=== PATIENT | female | born 1950 | race Caucasian/White ===

== ENCOUNTER 2022-05-18 14:57 | Outpatient (CLI) | payer OTHER, SELFPAY ==
--- NOTE | 2022-05-18 15:20 | CRLHL7_ITS ---
For Patients: As a result of the Century Cures Act, medical imaging exams and procedure reports are released immediately into your electronic medical record. You may view this report before your referring provider. If you have questions, please contact your health care provider. BILATERAL DIGITAL SCREENING MAMMOGRAM WITH COMPUTER-AIDED DETECTION, 05/18/2022 CLINICAL HISTORY: Routine screening exam. COMPARISON: 06/16/2020, 01/22/2019 TECHNIQUE: Digital mammogram in CC and MLO projections including computer-aided detection (CAD). BREAST COMPOSITION: The breasts are heterogeneously dense, which may obscure small masses. FINDINGS: RIGHT Breast: Asymmetric density within the lower outer quadrant 3 cm from the nipple. LEFT Breast: No suspicious findings. IMPRESSION: RIGHT breast asymmetry/mass. RECOMMENDATIONS: Additional mammographic views of the RIGHT breast including 3D spot-compression CC/MLO. RIGHT breast ultrasound may also be required. [facility] will contact the patient for follow-up. BI-RADS Category 0: Incomplete: Need Additional Imaging Evaluation. Dictated by Goyo Mcgovern MD @ 05/21/2022 8:58:48 AM PT/Dictated by: Goyo Mcgovern MD @ 05/21/2022 8:59:00 AM (Electronically Signed)
== END 2022-05-18 14:58 | disposition home or self-care (01) ==
LOC: MAMMO 14:58
PROVIDERS: PCP Internal Medicine; Visit Provider Internal Medicine
DX: Z12.31 Encounter for screening mammogram for malignant neoplasm of breast (principal); N63.10 Unspecified lump in the right breast, unspecified quadrant
CPT/HCPCS: 77067

== ENCOUNTER 2022-05-23 07:28 | Outpatient (CLI) | payer OTHER, SELFPAY ==
--- NOTE | 2022-05-23 07:45 | CRLHL7_ITS ---
For Patients: As a result of the Cures Act, medical imaging exams and procedure reports are released immediately into your electronic medical record. You may view this report before your referring provider. If you have questions, please contact your health care provider. DIGITAL DIAGNOSTIC RIGHT MAMMOGRAM WITH TOMOSYNTHESIS AND COMPUTER-AIDED DETECTION, 05/23/2022 RIGHT BREAST ULTRASOUND, 05/23/2022 CLINICAL HISTORY: RIGHT breast mass/asymmetry. COMPARISON: 05/18/2022. TECHNIQUE: Digital RIGHT mammogram in two projections. Tomosynthesis and CAD utilized. Real-time ultrasound imaging of RIGHT breast with imaging documentation. BREAST COMPOSITION: The breasts are heterogeneously dense, which may obscure small masses. FINDINGS: 3D spot compression CC/MLO RIGHT breast mammogram submitted. Decreased conspicuity of asymmetric density. No architectural distortion. Targeted RIGHT breast ultrasound performed in the area of concern, lower outer quadrant. At 7-8 o`clock 3 cm from the nipple, normal dense fibroglandular tissue is present with multiple duct ectasia. No fibrocystic change or mass. IMPRESSION: Normal additional views RIGHT breast and normal targeted RIGHT breast ultrasound. No evidence of malignancy. RECOMMENDATIONS: Annual BILATERAL screening mammography. BI-RADS Category 2: Benign A lay language report of this examination will be provided to the patient. Dictated by Goyo Mcgovern MD @ 05/23/2022 10:35:31 AM /Dictated by: Goyo Mcgovern MD @ 05/23/2022 10:35:00 AM (Electronically Signed)
--- NOTE | 2022-05-23 08:15 | CRLHL7_ITS ---
For Patients: As a result of the Cures Act, medical imaging exams and procedure reports are released immediately into your electronic medical record. You may view this report before your referring provider. If you have questions, please contact your health care provider. RIGHT BREAST ULTRASOUND, 05/23/2022 PLEASE SEE DIGITAL DIAGNOSTIC RIGHT MAMMOGRAM PERFORMED SAME DAY CRL:[email or web address] [email or web address]/Dictated by: Goyo Mcgovern MD @ 05/23/2022 10:35:00 AM (Electronically Signed)
== END 2022-05-23 07:29 | disposition home or self-care (01) ==
LOC: MAMMO 07:29
PROVIDERS: PCP Internal Medicine; Visit Provider Internal Medicine
DX: N63.10 Unspecified lump in the right breast, unspecified quadrant (principal); R92.8 Other abnormal and inconclusive findings on diagnostic imaging of breast
CPT/HCPCS: 76642; 77065; G0279

== ENCOUNTER 2023-06-14 07:47 | Outpatient (CLI) | payer OTHER, SELFPAY ==
--- NOTE | 2023-06-14 08:15 | CRLHL7_ITS ---
For Patients: As a result of the Century Cures Act, medical imaging exams and procedure reports are released immediately into your electronic medical record. You may view this report before your referring provider. If you have questions, please contact your health care provider. BILATERAL SCREENING MAMMOGRAM WITH COMPUTER-AIDED DETECTION TECHNIQUE: CC and MLO views were obtained. These mammographic images have been obtained using full-field digital technique. These mammographic images were interpreted with the benefit of computer-aided detection. COMPARISON FILM: 05/23/22, 05/18/22, 05/11/22. FINDINGS: The breasts are extremely dense, which lowers the sensitivity of mammography IMPRESSION: There is no radiographic evidence for malignancy. ASSESSMENT: BI-RADS Category 1: Negative RECOMMENDATION: Routine screening mammogram in 1 year. A lay language report of this examination will be provided to the patient. Goyo Mcgovern M.D. Diagnostic Radiologist [email or web address] YU/Dictated by: Goyo Mcgovern MD @ 06/14/2023 9:25:00 AM (Electronically Signed)
== END 2023-06-14 07:48 | disposition home or self-care (01) ==
LOC: MAMMO 07:49
PROVIDERS: PCP Internal Medicine; Visit Provider Internal Medicine
DX: Z12.31 Encounter for screening mammogram for malignant neoplasm of breast (principal); R92.2 Inconclusive mammogram
CPT/HCPCS: 77067

== ENCOUNTER 2024-04-01 07:48 | Outpatient (CLI) | payer OTHER, SELFPAY | END 2024-04-01 07:49 | disposition home or self-care (01) | LOC: NFLDREF 04-21 11:52 | PROVIDERS: PCP Internal Medicine; Referring Provider Internal Medicine; Visit Provider Internal Medicine | DX: Z00.00 Encounter for general adult medical examination without abnormal findings (principal); M81.0 Age-related osteoporosis without current pathological fracture; Z13.1 Encounter for screening for diabetes mellitus; Z13.6 Encounter for screening for cardiovascular disorders | CPT/HCPCS: 80061; 82306; 82947 ==

== ENCOUNTER 2024-06-19 08:52 | Outpatient (CLI) | payer OTHER, SELFPAY ==
--- NOTE | 2024-06-19 09:15 | CRLHL7_ITS ---
For Patients: As a result of the Century Cures Act, medical imaging exams and procedure reports are released immediately into your electronic medical record. You may view this report before your referring provider. If you have questions, please contact your health care provider. BILATERAL SCREENING MAMMOGRAM WITH COMPUTER-AIDED DETECTION AND TOMOSYNTHESIS TECHNIQUE: CC and MLO views were obtained. These mammographic images have been obtained using full-field digital technique. These mammographic images were interpreted with the benefit of computer-aided detection. Breast Tomosynthesis was used in this interpretation. COMPARISON FILM: 06/14/23, 05/18/22, 06/16/20. FINDINGS: The breasts are heterogeneously dense, which may obscure small masses IMPRESSION: There is no radiographic evidence for malignancy. ASSESSMENT: BI-RADS Category 1: Negative RECOMMENDATION: Routine screening mammogram in 1 year. A lay language report of this examination will be provided to the patient. Goyo Mcgovern M.D. Diagnostic Radiologist [email or web address] TAY/[email or web address] / bM/Dictated by: Goyo Mcgovern MD @ 06/19/2024 11:36:00 AM (Electronically Signed)
== END 2024-06-19 08:53 | disposition home or self-care (01) ==
LOC: MAMMO 08:52
PROVIDERS: PCP Internal Medicine; Visit Provider Internal Medicine
DX: Z12.31 Encounter for screening mammogram for malignant neoplasm of breast (principal); R92.2 Inconclusive mammogram
CPT/HCPCS: 77063; 77067

== ENCOUNTER 2025-04-02 08:35 | Outpatient (CLI) | payer MEDICARE, SELFPAY | END 2025-04-02 08:36 | disposition home or self-care (01) | LOC: NFLDREF 04-08 11:19 | PROVIDERS: PCP Internal Medicine; Referring Provider Internal Medicine; Visit Provider Internal Medicine | DX: Z00.01 Encounter for general adult medical examination with abnormal findings (principal); M81.0 Age-related osteoporosis without current pathological fracture; Z13.6 Encounter for screening for cardiovascular disorders; Z13.1 Encounter for screening for diabetes mellitus | CPT/HCPCS: 80061; 82306; 82947 ==

== ENCOUNTER 2025-04-28 15:06 | Outpatient (CLI) | payer MEDICARE, SELFPAY ==
--- NOTE | 2025-04-28 15:30 | CRLHL7_ITS ---
For Patients: As a result of the Century Cures Act, medical imaging exams and procedure reports are released immediately into your electronic medical record. You may view this report before your referring provider. If you have questions, please contact your health care provider. DXA BONE MINERAL DENSITY STUDY Reason for exam: Age-related osteoporosis. Current height (in): 62. Weight (lb): 100. Menopause age: 51. Ethnicity: White. 1. Have you had a previous hip or vertebral fracture? No. 2. Have you had any fractures during your adult life which did not result from significant trauma (e.g., auto accident)? No. 3. Did either of your parents have a hip fracture? No. 4. Do you smoke? No. 5. Have you ever taken Glucocorticoids? No. 6. Do you have rheumatoid arthritis? No. 7. Do you have secondary osteoporosis? No. 8. Do you drink 3 or more alcoholic drinks per day? No. 9. Are you being treated for osteoporosis? Yes. 10. Have you ever taken any of the following medications: Actonel, Evista, Fosamax, Miacalcin, Reclast, Boniva, Forteo, HRT (i.e. estrogen/hormone therapy), Protelos, Prolia, Vitamin D, Calcium, other ??? please specify. ANSWER: Yes, vitamin D. 11. Do you have any of the following medical conditions: Anorexia or bulimia, asthma or emphysema, end stage renal disease, hyperparathyroidism, any seizure disorders, cancer, inflammatory bowel diseases, hysterectomy, other ??? please specify. ANSWER: No. 12. What was your maximum height (inches)? 62. 13. Do you perform weight bearing exercise regularly? Yes. 14. Do you regularly consume dairy products? Yes. 15. Do you drink caffeinated beverages? No. 16. At what age did your period start? 12. 17. Are you premenopausal? No. 18. How many full-term pregnancies have you had? 2. 19. Have you ever missed your period for more than 6 months in a row (not including or menopause)? No. TECHNIQUE: Bone mineral density study was performed using the [employer]. FINDINGS: The results of the study expressed as bone mineral density (BMD) are as follows: Lumbar spine L1 to L3: BMD: 0.781 g/cm2. T-score: -2.2. Z-score: 0.3. Neck Left: BMD: 0.545 g/cm2. T-score: -2.7. Z-score: -0.6. Right: BMD: 0.531 g/cm2. T-score: -2.9. Z-score: -0.7. Total Left: BMD: 0.849 g/cm2. T-score: -0.8. Z-score: 1.1. Right: BMD: 0.837 g/cm2. T-score: -0.9. Z-score: 1.0. IMPRESSION: Osteoporosis. *Comparison exams done prior to 04/2020 were performed on different unit, [employer]. COMPARISON: Compared with scan of 06/16/2020, the bone mineral density has increased by 4.2 percent at the spine and increased by 14.1 percent at the hip. Goyo Mcgovern M.D. Diagnostic Radiologist [email or web address] TAY/[email or web address] garcia/Dictated by: Goyo Mcgovern MD @ 04/29/2025 11:59:00 AM (Electronically Signed)
== END 2025-04-28 15:07 | disposition home or self-care (01) ==
LOC: RAD 15:07
PROVIDERS: PCP Internal Medicine; Visit Provider Internal Medicine
DX: M81.0 Age-related osteoporosis without current pathological fracture (principal)
CPT/HCPCS: 77080